=== PATIENT | female | born 1950 | race Caucasian/White ===

== ENCOUNTER → 2017-01-06 | Outpatient (CLI) | payer MEDICARE, MEDICAID ==
[~2017-01-06] MED LIST: AMIT75TA2 PO; AMLO10TA2 PO; CARV3.125 PO; COMBAER INH; FENT50DI TD; FOSA70TA PO; HYDR10SO PO; LEVO50TA4 PO; METH2.5 PO; OMEG1CAP53 PO; POTA-243 PO; ROPI1TAB72 PO; TAB-TAB PO; VALA500 PO; VITA100018 PO; XANA1TAB6 PO
[2017-01-06 10:50] LABS: AUTOMATED NEUTROPHIL # 2.4 TH/MM3 (1.8-7.7); BASOPHIL % 0.4 % (0.0-2.0); EOSINOPHIL # 0.1 TH/MM3 (0-0.4); HEMATOCRIT 38.7 % (35.0-46.0); LYMPH % 32.7 % (9.0-44.0); LYMPHOCYTE # 1.4 TH/MM3 (1.0-4.8); MEAN CELL VOLUME 96.7 FL (80.0-100.0); MEAN CORPUSCULAR HEMOGLOBIN 32.3 PG (27.0-34.0); MEAN CORPUSCULAR HGB CONC 33.4 % (32.0-36.0); MONO % 8.6 % (0.0-8.0); NEUT % 56.3 % (16.0-70.0); PLATELET COUNT 96 TH/MM3 (150-450); RED CELL DISTRIBUTION WIDTH 13.8 % (11.6-17.2); WHITE BLOOD COUNT 4.3 TH/MM3 (4.0-11.0)
[2017-01-06 10:56] LABS: HEMO FLAGS AUTO DIFF
[2017-01-06 11:13] LABS: THYROXINE (T4) 8.7 MCG/DL (4.8-13.9)
[2017-01-06 12:27] LABS: PLATELET ESTIMATE SMEAR LOW (NORMAL); PLATELET MORPHOLOGY NORMAL (NORMAL); SCAN/DIFF AUTO DIFF CONFIRMED
== END ==
LOC: CLAB 10:26
PROVIDERS: ATTEND Orthopaedic Surgery Hand Surgery
DX: S61.451A Open bite of right hand, initial encounter (principal); X58.XXXA Exposure to other specified factors, initial encounter; E03.9 Hypothyroidism, unspecified
CPT/HCPCS: 36415; 84436; 84443; 84480; 85025